=== PATIENT | male | born 1985 | race Hispanic/Latino ===

== ENCOUNTER → 2023-03-12 | Emergency (ER) | payer OTHER ==
[~2023-03-12] VITALS: Ht 177.8 cm; Wt 92.5 kg
[~2023-03-12] MED LIST: KETOROLAC 15MG/ML VIAL (15MG/ML) IM ONE
[2023-03-12 13:11] VITALS: BP 93/52
== END ==
LOC: EDH 13:04
DX: S62.612A Displaced fracture of proximal phalanx of right middle finger, initial encounter for closed fracture (principal); X58.XXXA Exposure to other specified factors, initial encounter; Y93.89 Activity, other specified; Y92.89 Other specified places as the place of occurrence of the external cause; Y99.8 Other external cause status
CPT/HCPCS: 99284; 73100; 73130; 96372; J1885

== ENCOUNTER 2023-06-20 08:44 | Emergency (ER) | payer MEDICAID, OTHER ==
[~2023-06-20] VITALS: Ht 180.3 cm; Wt 93.0 kg
[2023-06-20 08:46] VITALS: BP 122/73; PULSE 110; RESP 18
== END 2023-06-20 11:40 | disposition left against medical advice (07) ==
LOC: EDH 08:44
DX: S81.832D Puncture wound without foreign body, left lower leg, subsequent encounter (principal); Z53.21 Procedure and treatment not carried out due to patient leaving prior to being seen by health care provider; W34.00XD Accidental discharge from unspecified firearms or gun, subsequent encounter

== ENCOUNTER 2025-06-30 12:06 | Emergency (ER) | payer SELFPAY ==
[~2025-06-30] VITALS: Ht 180.3 cm; Wt 97.5 kg
--- NOTE | 2025-06-30 13:11 | HMCIMG ---
EXAM: CR right Shoulder, 2 View. CLINICAL HISTORY: pain, fall COMPARISON: None provided. FINDINGS: There is concern for an age-indeterminate right glenoid fracture. Joint spaces remain anatomically aligned. No abnormality within the visualized chest. IMPRESSION: 1. Concern for age-indeterminate right glenoid fracture. Recommend CT imaging for further evaluation. /[place]
--- NOTE | 2025-06-30 14:29 | NUR ---
PENDING GFR RESULTS, IV SITE, & CONSENT FOR CT EXAM.
[2025-06-30] MEDS ORDERED: IOHEXOL-350 75 ML VIAL IV ONE (14:58)
[2025-06-30 15:26] LABS: IMMATURE GRANULOCYTE ABSOLUTE 0.04 K/uL (0-1); NUCLEATED RED BLOOD CELLS 0.0 % (0.0-0.19); PLATELET COUNT (AUTO) 248 K/uL (130-400); RED BLOOD CELL COUNT(AUTO) 5.18 MIL/uL (4.50-6.20); RED CELL DISTRIBUTION WIDTH 13.1 % (11.0-15.5); WHITE BLOOD COUNT (AUTO) 12.0 K/uL (4.8-10.8)
[2025-06-30 15:34] LABS: CREATININE 1.2 mg/dL (0.5-1.3); GLOMERULAR FILTR. RATE CALC 80.0 mL/min (>90); GLUCOSE,RANDOM 103.0 mg/dL (70-105); SODIUM SERUM 131.0 mmol/L (136-145); UREA NITROGEN, BLOOD 27.0 mg/dL (7-18)
--- NOTE | 2025-06-30 15:47 | HMCIMG ---
EXAM: CT right Shoulder, without IV contrast. CLINICAL HISTORY: shoulder pain, abnormal X-ray TECHNIQUE: Axial images were acquired through the right shoulder without IV contrast. Reformatted images were reviewed. The alignment of the medical both the AP COMPARISON: CR shoulder dated 2023 FINDINGS: The acromioclavicular joint is anatomically aligned. There is posterior dislocation of the right glenohumeral joint with the humeral head posteriorly displaced from the glenoid fossa, and impacted upon the posterior lip of the glenoid. Impaction fracture of the anterior glenoid head. Comminuted, multi-fragmentary, displaced fracture of the posterior glenoid rim. Fractured bony fragments are displaced inferiorly along the inferior glenohumeral ligament joint space and posteriorly along the intermuscular plane of the rotator cuff muscles Multiple dystrophic calcific foci are seen along the muscular bulk of the subscapularis muscle. Mild surrounding chronic collection with few calcific foci noted within. IMPRESSION: 1. Posterior dislocation of the right glenohumeral joint with associated fractures: 2. Displaced bony fragments inferiorly and posteriorly. /[place]
--- NOTE | 2025-06-30 16:30 | NUR ---
OBTAINED INFORMED CONSET FOR RT SHOULDER REDUCTION UNDER CONSCIOUS SEDATION, REFER TO SEDATION FLOW SHEET
--- NOTE | 2025-06-30 16:39 | HMCIMG ---
EXAM: CT Abdomen and Pelvis with IV contrast CLINICAL HISTORY: abdomina pain, trauma TECHNIQUE: Axial computed tomography images of the abdomen and pelvis with intravenous contrast. CONTRAST: with intravenous contrast. COMPARISON: None provided. FINDINGS: LUNG BASES: The lung bases appear clear. No pleural effusions are seen. LIVER: Unremarkable. GALLBLADDER AND BILE DUCTS: The gallbladder appears within normal limits. No radioopaque gallstones are seen. No biliary ductal dilatation is evident. PANCREAS: Unremarkable. SPLEEN: Unremarkable. ADRENAL GLANDS: Unremarkable. KIDNEYS, URETERS, AND BLADDER: The kidneys appear within normal limits. There is no hydronephrosis or hydroureter. No urinary calculi are seen. STOMACH AND BOWEL: Unremarkable appearance of the stomach and bowel. No evidence of bowel obstruction. No evidence suggesting enteritis or colitis. APPENDIX: No evidence of acute appendicitis on CT examination. PERITONEUM: No free fluid. No free air. LYMPH NODES: No lymphadenopathy is evident. REPRODUCTIVE: Unremarkable as visualized. VASCULATURE: No evidence of abdominal aortic aneurysm. BONES: No aggressive appearing osseous lesion. No acute osseous pathology evident. IMPRESSION: No acute intra-abdominal or pelvic abnormality. /[place]
--- NOTE | 2025-06-30 17:00 | NUR ---
PT AWAKE, ALERT, ORIENTED X4, BACK TO BASELINE
--- NOTE | 2025-06-30 17:01 | ERN ---
ED Note History of Present Illness Stated Complaint: RT SHOULDER PAIN Chief Complaint: Shoulder Injury/Pain Time Seen by MD: 12:12 Time Seen by Midlevel: 12:18 Dictation: 39-year-old male with no past medical history is coming in with complaints of right shoulder pain status post fall last night. Patient states he was walking on pipes that ran over a [place] when he fell, states he fell like, two stories. Denies any LOC, denies any head injury. States only complaint is right shoulder pain, states it is dislocated as he has had previous shoulder dislocations in the past. Allergies: Coded Allergies: No Known Drug Allergies (Unverified Allergy, Unknown, 06/20/23) Past Medical History Past Medical History: No Pertinent History Surgical History: Other Surgical History Other: MICHAEL KNEES, LT HIP, RT HAND Review of System Dictation Constitutional: Negative for fever,chills, and weight loss Eyes: Negative for injury, pain,redness, and discharge ENT: Negative for injury,pain or swelling Cardiovascular: Negative for chest pain, palpitations, and edema Respiratory: Negative for shortness of breath, cough, and wheezing, Abdomen/GI: Negative for abdominal pain, nausea, vomiting, diarrhea, and constipation Back: Negative for injury and pain : Negative for injury, bleeding and discharge MS/Extremity: Complaining of right shoulder pain Skin: Negative for rash, and discoloration Neuro: Negative for headache, weakness, numbness, tingling, and seizure Psych: Negative for suicide ideation, homicidal ideation, and hallucinations Review of Systems: was completed Initial Vital Sign VS Vital Signs Date Time Temp Pulse Resp B/P (MAP) Pulse Ox O2 Delivery O2 Flow Rate FiO2 06/30/25 12:08 98.4 104 22 110/66 98 Room Air 0 06/30/25 13:03 21 Physical Exam Dictation General: awake, alert, NAD Head/Face: Normocephalic, atraumatic Eyes: PERRL, EOMI, vision at baseline ENT: oral cavity clear, TMs clear, no signs of infection Neck: Trachea midline, supple, no nuchal rigidity Cardiovascular: RRR, normal S1/S2, No MRGs, no JVD Respiratory: CTAB, no respiratory distress, No rales or wheezes Abdomen: Soft, non-tender, non-distended, normal bowel sounds, no guarding or rebound. Skin: Warm, dry, normal turgor, no rash MS/Extremity: Pulses equal, no cyanosis, neurovascular intact, limited ROM to the right upper extremity Neuro: COAx4, GCS 15, strength 5/5, CN 2-12 intact, normal cerebellar exam, normal gait, Psych: Normal behavior, mood, and affect normal Results (Laboratory/Radiology) Laboratory/Radiology Laboratory Tests Test 06/30/25 15:19 White Blood Count 12.0 K/uL (4.8-10.8) H Red Blood Count 5.18 MIL/uL (4.50-6.20) Hemoglobin 16.1 g/dL (14.0-18.0) Hematocrit 48.0 % (42-54) Mean Corpuscular Volume 92.7 fL (79-99) Mean Corpuscular Hemoglobin 31.1 pg (27.0-33.0) Mean Corpuscular Hemoglobin Concent 33.5 g/dL (32.0-36.0) Red Cell Distribution Width 13.1 % (11.0-15.5) Platelet Count 248 K/uL (130-400) Mean Platelet Volume 11.2 fL (7.5-10.5) H Immature Granulocyte % (Auto) 0.3 % (0-1) Neutrophils (%) (Auto) 72.1 % (40.0-77.0) Lymphocytes (%) (Auto) 14.4 % (21.0-51.0) L Monocytes (%) (Auto) 12.0 % (3.0-13.0) Eosinophils (%) (Auto) 0.1 % (0.0-8.0) Basophils (%) (Auto) 1.1 % (0.0-5.0) Neutrophils # (Auto) 8.7 K/uL (1.8-7.7) H Lymphocytes # (Auto) 1.7 K/uL (1.0-4.8) Monocytes # (Auto) 1.4 K/uL (0.1-1.0) H Eosinophils # (Auto) 0.01 K/uL (0.00-0.70) Basophils # (Auto) 0.13 K/uL (0.00-0.20) Absolute Immature Granulocyte (auto 0.04 K/uL (0-1) Nucleated Red Blood Cells 0.0 % (0.0-0.19) Sodium Level 131 mmol/L (136-145) L Potassium Level 4.0 mmol/L (3.5-5.1) Chloride Level 94 mmol/L (101-111) L Carbon Dioxide Level 29 mmol/L (21-32) Blood Urea Nitrogen 27 mg/dL (7-18) H Creatinine 1.2 mg/dL (0.5-1.3) Glomerular Filtration Rate Calc 80 mL/min (>90) Random Glucose 103 mg/dL (70-105) Total Calcium 9.3 mg/dL (8.5-10.1) Labs Reviewed?: Yes X-RAY Comment: [facility] [address] [place] [id number] IMAGING REPORT Signed PATIENT: KENTON BYRNE MR#: [id number] : 1985 SEX: M AGE: 39 LOCATION: [facility] ORDER STATUS: [facility] REPORT#: [id number] SERVICE 16 REASON: pain, fall ORDERING PHYSICIAN: SABIHA MICHAELS NP PROCEDURE: SHOL 2V RT - SHOULDER COMP 2+VWS RT EXAM: CR right Shoulder, 2 View. CLINICAL HISTORY: pain, fall COMPARISON: None provided. FINDINGS: There is concern for an age-indeterminate right glenoid fracture. Joint spaces remain anatomically aligned. No abnormality within the visualized chest. IMPRESSION: 1. Concern for age-indeterminate right glenoid fracture. Recommend CT imaging for further evaluation. /[place] DICTATED BY: MAMI BELTRAN Jr., MD DATE: 06/30/251409 ELECTRONICALLY SIGNED BY: MAMI BELTRAN Jr., MD DATE: 06/30/251409 CT Scan Comment: [facility] [address] [place] [address] IMAGING REPORT Signed PATIENT: KENTON BYRNE MR#: [id number] : 1985 SEX: M AGE: 39 LOCATION: [facility] ORDER 26 STATUS: REG ER REPORT#: [id number] SERVICE 25 REASON: shoulder pain, abnormal xray ORDERING PHYSICIAN: SABIHA MICHAELS NP PROCEDURE: UPP EXT WO - CT UPPER EXT W/O CONTRAST EXAM: CT right Shoulder, without IV contrast. CLINICAL HISTORY: shoulder pain, abnormal X-ray TECHNIQUE: Axial images were acquired through the right shoulder without IV contrast. Reformatted images were reviewed. The alignment of the medical both the AP COMPARISON: CR shoulder dated 2023 FINDINGS: The acromioclavicular joint is anatomically aligned. There is posterior dislocation of the right glenohumeral joint with the humeral head posteriorly displaced from the glenoid fossa, and impacted upon the posterior lip of the glenoid. Impaction fracture of the anterior glenoid head. Comminuted, multi-fragmentary, displaced fracture of the posterior glenoid rim. Fractured bony fragments are displaced inferiorly along the inferior glenohumeral ligament joint space and posteriorly along the intermuscular plane of the rotator cuff muscles Multiple dystrophic calcific foci are seen along the muscular bulk of the subscapularis muscle. Mild surrounding chronic collection with few calcific foci noted within. IMPRESSION: 1. Posterior dislocation of the right glenohumeral joint with associated fractures: 2. Displaced bony fragments inferiorly and posteriorly. /[place] DICTATED BY: MAMI BELTRAN Jr., MD DATE: 06/30/251645 ELECTRONICALLY SIGNED BY: MAMI BELTRAN Jr., MD DATE: 06/30/251645 [address] [address] IMAGING REPORT Signed PATIENT: KENTON BYRNE MR#: [id number] : 1985 SEX: M AGE: 39 LOCATION: [facility] ORDER 17 STATUS: REG ER REPORT#: [id number] SERVICE 1417 REASON: abdomina pain, trauma ORDERING PHYSICIAN: SABIHA MICHAELS NP PROCEDURE: ABD PEL W - CT ABDOMEN/PELVIS W/CONTRAST EXAM: CT Abdomen and Pelvis with IV contrast CLINICAL HISTORY: abdomina pain, trauma TECHNIQUE: Axial computed tomography images of the abdomen and pelvis with intravenous contrast. CONTRAST: with intravenous contrast. COMPARISON: None provided. FINDINGS: LUNG BASES: The lung bases appear clear. No pleural effusions are seen. LIVER: Unremarkable. GALLBLADDER AND BILE DUCTS: The gallbladder appears within normal limits. No radioopaque gallstones are seen. No biliary ductal dilatation is evident. PANCREAS: Unremarkable. SPLEEN: Unremarkable. ADRENAL GLANDS: Unremarkable. KIDNEYS, URETERS, AND BLADDER: The kidneys appear within normal limits. There is no hydronephrosis or hydroureter. No urinary calculi are seen. STOMACH AND BOWEL: Unremarkable appearance of the stomach and bowel. No evidence of bowel obstruction. No evidence suggesting enteritis or colitis. APPENDIX: No evidence of acute appendicitis on CT examination. PERITONEUM: No free fluid. No free air. LYMPH NODES: No lymphadenopathy is evident. REPRODUCTIVE: Unremarkable as visualized. VASCULATURE: No evidence of abdominal aortic aneurysm. BONES: No aggressive appearing osseous lesion. No acute osseous pathology evident. IMPRESSION: No acute intra-abdominal or pelvic abnormality. /[place] DICTATED BY: JOEL TIM MD DATE: 06/30/251736 ELECTRONICALLY SIGNED BY: OJEL TIM MD DATE: 06/30/251736 ED Course ED Course Orders Procedure Category Date Status Time Shoulder Comp 2+Vws Rt RAD 06/30/25 Resulted 12:17 Ondansetron 4mg Inj PHA 06/30/25 Complete (Zofran 4mg Inj) 13:00 Fentanyl Citrate Pf PHA 06/30/25 Complete 0.05 Mg/Ml (Fentanyl 13:00 Ct Upper Ext W/O CT 06/30/25 Resulted Contrast 13:26 Morphine 2mg Syg PHA 06/30/25 Complete (Morphine 2mg Syg) 14:17 Ct Abdomen/Pelvis CT 06/30/25 Resulted W/Contrast 14:17 Basic Metabolic Panel LAB 06/30/25 Complete 14:51 Cbc With Differential LAB 06/30/25 Complete 14:55 Iohexol (Omnipaque) PHA 06/30/25 Complete 14:58 Propofol 20ml Vial PHA 06/30/25 Complete (Diprivan 20ml Vial) 16:02 Arm Sling To Op CPOE 06/30/25 Transmitted Shoulder 16:46 Shoulder Comp 2+Vws Rt RAD 06/30/25 Taken 16:46 Ketorolac PHA 06/30/25 In Process Tromethamine 15mg/Ml 17:30 Ketorolac PHA 06/30/25 Complete Tromethamine 15mg/Ml 17:10 Current Medications Medications (Trade) Dose Ordered Sig/Eron Route PRN Reason Start Time Stop Time Status Last Admin Dose Admin Fentanyl Citrate (FENTanyl CITRate PF 50 MCG/ 1 ML 2ML VIAL) 100 mcg ONCE ONCE IVP 06/30/25 13:00 06/30/25 13:01 DC 06/30/25 12:56 Iohexol (Omnipaque) 75 ml STK-MED ONCE IV 06/30/25 14:58 06/30/25 14:58 DC Ketorolac Tromethamine (toRADol) 15 mg ONCE ONCE IV 06/30/25 17:30 06/30/25 17:31 06/30/25 17:11 Ketorolac Tromethamine (toRADol) 15 mg STK-MED ONCE .ROUTE 06/30/25 17:10 06/30/25 17:10 DC Morphine Sulfate (morPHINE 2MG SYG) 2 mg ONCE STAT IVP 06/30/25 14:17 06/30/25 14:21 DC 06/30/25 14:31 Ondansetron HCl (zoFRAN 4MG INJ) 4 mg ONCE ONCE IVP 06/30/25 13:00 06/30/25 13:01 DC 06/30/25 12:56 Propofol (DIPRivan 20ML VIAL) 200 mg ONCE STAT IV 06/30/25 16:02 06/30/25 16:09 DC 06/30/25 17:06 Vital Signs Date Time Temp Pulse Resp B/P (MAP) Pulse Ox O2 Delivery O2 Flow Rate FiO2 06/30/25 13:03 84 15 125/78 96 Room Air* 0 21 06/30/25 12:08 98.4 104 22 110/66 98 Room Air 0 Medical Decision Making MDM MDM: 39-year-old male with no past medical history is coming in with complaints of right shoulder pain status post fall last night. Patient states he was walking on pipes that ran over a [place] when he fell, states he fell like, two stories. Denies any LOC, denies any head injury. States only complaint is right shoulder pain, states it is dislocated as he has had previous shoulder dislocations in the past. Work unremarkable. X-ray shows questionable fracture and dislocation, ordered a CT of the right shoulder for further evaluation. At 2:18 p.m. patient isn't complaining of abdominal pain states cramp like, states after the fall. CT of the abdomen and pelvis ordered at this time. CT of the abdomen and pelvis shows no acute findings. See procedure note for conscious sedation for shoulder reduction. Discussed with the patient that he needs to follow up outpatient with the orthopedic surgeon. Differential diagnosis: Shoulder fracture, shoulder dislocation, shoulder contusion Rationale: Tests considered and ordered secondary to shared decision making include: Previous outside records reviewed: Old ER visits. Risk of complication and/or morbidity or mortality of patient management: None Medications-Per medication reconciliation Need for hospitalization: Patient does not meet criteria for hospitalization. Need for emergency major/minor surgery: No There are no social concerns with this patient. Prescription drug management Prescriptions will include symptomatic care Patient's prior external medical records from other ER visits were reviewed by me as indicated. Prior testing and results from previous visits were reviewed. Prior tests were taken into account with medical decision making and resource utilization, independent historian/historians were used to obtain complete medical history. I independently interpreted the test that were performed, results were reviewed by me and considered findings on radiology if ordered. Medical management and examination interpretation discussions were had by me with other qualified healthcare professionals as indicated for the patient's care. Procedure Conscious Sedation: Yes Reduction Attempts: 1 Pre-Procedure NV Exam: Yes Post-Procedure NV Exam: Yes post joint reduction film: joint reduced DX & DISP Disposition: Discharge Departure Impression: Primary Impression: Shoulder dislocation Additional Impression: Glenoid fracture of shoulder Condition: Stable Additional Instructions: Do not use your right shoulder, leave sling on until seen by orthopedic. Return to the hospital as needed. Referrals: NONE (PCP) ANDREA JARAMILLO MD Time of Disposition: 17:31 I have reviewed the case, and I agree with, Diagnosis and Plan SABIHA MICHAELS NP Jun 30, 2025 17:01
[2025-06-30 17:55] VITALS: BP 122/73; PULSE 78; RESP 15; TEMP 97.8; O2SAT 99
--- NOTE | 2025-06-30 18:30 | HMCIMG ---
EXAM: CR right Shoulder, 3 View. CLINICAL HISTORY: POST REDUCTION COMPARISON: None provided. FINDINGS: The glenohumeral joint now appears anatomically aligned. Remainder of the examination is unchanged. IMPRESSION: 1. Glenohumeral joint anatomically aligned post-reduction. /[place]
== END 2025-06-30 18:09 | disposition home or self-care (01) ==
LOC: EDH 12:06
DX: S43.004A Unspecified dislocation of right shoulder joint, initial encounter (principal); S42.141A Displaced fracture of glenoid cavity of scapula, right shoulder, initial encounter for closed fracture; W18.39XA Other fall on same level, initial encounter; Y93.01 Activity, walking, marching and hiking; Y92.89 Other specified places as the place of occurrence of the external cause; Y99.8 Other external cause status
CPT/HCPCS: 99285; 73200; 23650; 96374; 96375; 80048; 85025; 36415; 73030 ×2; 74177; 99152; J1885; J3010; J2270; J2704; J2405; Q9967; J3490